=== PATIENT | female | born 1990 | race Caucasian/White ===

== ENCOUNTER 2018-10-31 18:39 | Emergency (ER) | payer OTHER ==
[~2018-10-31] VITALS: Ht 172.7 cm; Wt 101.2 kg
--- NOTE | 2018-10-31 18:46 | ED.ADGEN ---
Past History Past Medical History: Anxiety, Asthma, Depression, STD, UTI, Other Past Surgical History: Other Smoking: Less than 1pk/day Alcohol Use: Heavy Drug Use: None Adult General Chief Complaint Chief Complaint ".. I ve been having contractions all day.... so I figured ... I would get checked out.. I ve had bleeding for two months... now.... I about 30 weeks.. My OB is in [place], [place].. that where I plan on having the baby ... they say I am high risk .. they see me almost every week to 2 weeks..... this will be my second .... HPI HPI Patient is a 28 year old female who presents with above hx and complaints abdomen cramping. Patient has had persistent intermittent vaginal bleeding described as spotting for 2 months.. This will be patient's second . Patient has history of previous STDs of Chlamydia x2 and Trichomonas x2. Has had approximately 50 sex partners in her lifetime. Patient does smoke tobacco and marijuana. Patient is seeing a specialist at [place] for her high risk . However patient plans on delivering at [place], [place]. No history of trauma. Pt. has no history immunosuppression. No history of recent travel. No history of specific ill contacts. Last ultra sound indicated a intrauterine . . No obvious abnormalities Review of Systems Review of Systems Constitutional: Denies fever or chills [] Eyes: Denies change in visual acuity, redness, or eye pain [] HENT: Denies nasal congestion or sore throat [] Respiratory: Denies cough or shortness of breath [] Cardiovascular: No additional information not addressed in HPI [] GI: Crampy abdominal pain, nausea,. Denies vomiting, bloody stools or diarrhea [ ] : Denies dysuria or hematuria []history of vaginal spotting. Musculoskeletal: Denies back pain or joint pain [] Integument: Denies rash or skin lesions [] Neurologic: Denies headache, focal weakness or sensory changes [] Endocrine: Denies polyuria or polydipsia [] All other systems were reviewed and found to be within normal limits, except as documented in this note. Family History Family History Noncontributory Current Medications Current Medications Current Medications Medications (Trade) Dose Ordered Sig/Cristal Start Time Stop Time Status Last Admin Dose Admin Famotidine (Pepcid Vial) 20 mg 1X ONCE 10/31/18 19:30 10/31/18 19:38 DC 10/31/18 19:58 20 MG Lactated Ringer's 1,000 ml @ 1,000 mls/hr Q1H 10/31/18 19:26 10/31/18 20:25 DC 10/31/18 20:32 1,000 MLS/HR Magnesium Sulfate 50 ml @ 25 mls/hr 1X ONCE 10/31/18 19:30 10/31/18 21:29 DC 10/31/18 19:58 25 MLS/HR Ondansetron HCl (Zofran) 4 mg 1X ONCE 10/31/18 19:30 10/31/18 19:38 DC 10/31/18 19:58 4 MG Allergies Allergies Allergies Coded Allergies Type Severity Reaction Last Updated Verified codeine Allergy 09/26/13 Yes Physical Exam Physical Exam Constitutional: no acute distress, non-toxic appearance. [] HENT: Normocephalic, atraumatic, bilateral external ears normal, oropharynx moist, no oral exudates, nose normal. [] Eyes: PERRLA, EOMI, conjunctiva normal, no discharge. [] Neck: Normal range of motion, no tenderness, supple, no stridor. [] Cardiovascular:Heart rate regular rhythm, no murmur [] Lungs & Thorax: Bilateral breath sounds equal with few scattered wheezes on auscultation [] Abdomen: Bowel sounds normal, soft, no tenderness, no masses, no pulsatile masses. Obvious , head appears to be cephalic. No contractions noted during my exam. heart rate appears to be between 1:30 to 140. Vaginal exam no active bleeding. Os is closed. Some mild right adnexal tenderness. Skin: Warm, dry, no erythema, no rash. [] Back: No tenderness, no CVA tenderness. [] Extremities: No tenderness, no cyanosis, no clubbing, ROM intact, trace ankle edema. [] Neurologic: Alert and oriented X 3, normal motor function, normal sensory function, no focal deficits noted. DTRs +2 at patella Psychologic: Affect anxious, judgement normal, mood normal. [] Current Patient Data Vital Signs Vital Signs Date Time Temp Pulse Resp B/P (MAP) Pulse Ox O2 Delivery O2 Flow Rate FiO2 10/31/18 22:10 87 18 128/64 (85) 98 Room Air 10/31/18 18:48 98.3 Lab Results Laboratory Tests Test 10/31/18 18:48 10/31/18 19:29 White Blood Count 11.8 x10^3/uL (4.0-11.0) H Red Blood Count 4.17 x10^6/uL (3.50-5.40) Hemoglobin 11.5 g/dL (12.0-15.5) L Hematocrit 35.3 % (36.0-47.0) L Mean Corpuscular Volume 85 fL (79-100) Mean Corpuscular Hemoglobin 28 pg (25-35) Mean Corpuscular Hemoglobin Concent 33 g/dL (31-37) Red Cell Distribution Width 13.6 % (11.5-14.5) Platelet Count 255 x10^3/uL (140-400) Neutrophils (%) (Auto) 75 % (31-73) H Lymphocytes (%) (Auto) 17 % (24-48) L Monocytes (%) (Auto) 7 % (0-9) Eosinophils (%) (Auto) 1 % (0-3) Basophils (%) (Auto) 0 % (0-3) Neutrophils # (Auto) 8.9 x10^3uL (1.8-7.7) H Lymphocytes # (Auto) 2.0 x10^3/uL (1.0-4.8) Monocytes # (Auto) 0.8 x10^3/uL (0.0-1.1) Eosinophils # (Auto) 0.1 x10^3/uL (0.0-0.7) Basophils # (Auto) 0.0 x10^3/uL (0.0-0.2) Urine Collection Type Unknown Urine Color Yellow Urine Clarity Clear Urine pH 7.0 Urine Specific Cohagen 1.025 Urine Protein Neg (NEG-TRACE) Urine Glucose (UA) Neg mg/dL (NEG) Urine Ketones (Stick) Neg mg/dL (NEG) Urine Blood Neg (NEG) Urine Nitrite Neg (NEG) Urine Bilirubin Neg (NEG) Urine Urobilinogen Dipstick 0.2 mg/dL (0.2 mg/dL) Urine Leukocyte Esterase Neg (NEG) Urine RBC 0 /HPF (0-2) Urine WBC 1-4 /HPF (0-4) Urine Squamous Epithelial Cells Occ /LPF Urine Bacteria Few /HPF (0-FEW) Urine Mucus Mod /LPF Maternal Serum HCG Beta Subunit 37713 mIU/mL (0-6) H Sodium Level 139 mmol/L (136-145) Potassium Level 4.2 mmol/L (3.5-5.1) Chloride Level 105 mmol/L (98-107) Carbon Dioxide Level 23 mmol/L (21-32) Anion Gap 11 (6-14) Blood Urea Nitrogen 10 mg/dL (7-20) Creatinine 0.6 mg/dL (0.6-1.0) Estimated GFR (Cockcroft-Gault) 120.8 Glucose Level 94 mg/dL (70-99) Calcium Level 9.3 mg/dL (8.5-10.1) Magnesium Level 1.7 mg/dL (1.8-2.4) L Total Bilirubin 0.2 mg/dL (0.2-1.0) Direct Bilirubin 0.1 mg/dL (0.0-0.2) Aspartate Amino Transferase (AST) 17 U/L (15-37) Alanine Aminotransferase (ALT) 14 U/L (14-59) Alkaline Phosphatase 102 U/L (46-116) Creatine Kinase 32 U/L (26-192) Troponin I Quantitative < 0.017 ng/mL (0-0.055) Total Protein 7.0 g/dL (6.4-8.2) Albumin 2.8 g/dL (3.4-5.0) L Lipase 146 U/L (73-393) Urine Opiates Screen Neg (NEG) Urine Methadone Screen Neg (NEG) Urine Barbiturates Neg (NEG) Urine Phencyclidine Screen Neg (NEG) Urine Amphetamine/Methamphetamine Neg (NEG) Urine Benzodiazepines Screen Neg (NEG) Urine Cocaine Screen Neg (NEG) Urine Cannabinoids Screen Pos (NEG) Urine Ethyl Alcohol Neg (NEG) Prothrombin Time 9.3 SEC (9.4-11.4) L Prothrombin Time INR 0.9 (0.9-1.1) PTT 22 SEC (23-33) L EKG EKG [] Radiology/Procedures Radiology/Procedures Ultrasound shows intrauterine . MS heart rate 127. Estimated 31 weeks 0 days. No acute abnormalities. See formal report when available[] Course & Med Decision Making Course & Med Decision Making Pertinent Labs and Imaging studies reviewed. (See chart for details) Patient to push fluids. Patient avoid tobacco or warm. Her any illicit drug. Patient to keep follow-up with her primary care/OB. Patient continue vitamins. Must follow-up cultures taken here. May have only Tylenol for discomfort. [] Final Impression Final Impression 1. Threaten Miscarry[] 2. Intrauterine estimated to be 31 weeks no days 3. History of marijuana and tobacco use 4. Blood type A+ 5. Mild leukocytosis of 11.8 and mild dilutional anemia 11.5 6. Hypo-magnesium 1.7 7. Beta hCG is 66, 103 8. Estimated due date is 01/02/19 [employer] Disclaimer Ik[employer]edia Disclaimer This electronic medical record was generated, in whole or in part, using a voice recognition dictation system. Discharge Summary Visit Information Final Diagnosis Problems Medical Problems: (1) Threatened Status: Acute Brief Hospital Course Allergies Allergies Coded Allergies Type Severity Reaction Last Updated Verified codeine Allergy 09/26/13 Yes Vital Signs Vital Signs Date Time Temp Pulse Resp B/P (MAP) Pulse Ox O2 Delivery O2 Flow Rate FiO2 10/31/18 22:10 87 18 128/64 (85) 98 Room Air 10/31/18 18:48 98.3 Lab Results Laboratory Tests Test 10/31/18 18:48 10/31/18 19:29 White Blood Count 11.8 x10^3/uL (4.0-11.0) Red Blood Count 4.17 x10^6/uL (3.50-5.40) Hemoglobin 11.5 g/dL (12.0-15.5) Hematocrit 35.3 % (36.0-47.0) Mean Corpuscular Volume 85 fL (79-100) Mean Corpuscular Hemoglobin 28 pg (25-35) Mean Corpuscular Hemoglobin Concent 33 g/dL (31-37) Red Cell Distribution Width 13.6 % (11.5-14.5) Platelet Count 255 x10^3/uL (140-400) Neutrophils (%) (Auto) 75 % (31-73) Lymphocytes (%) (Auto) 17 % (24-48) Monocytes (%) (Auto) 7 % (0-9) Eosinophils (%) (Auto) 1 % (0-3) Basophils (%) (Auto) 0 % (0-3) Neutrophils # (Auto) 8.9 x10^3uL (1.8-7.7) Lymphocytes # (Auto) 2.0 x10^3/uL (1.0-4.8) Monocytes # (Auto) 0.8 x10^3/uL (0.0-1.1) Eosinophils # (Auto) 0.1 x10^3/uL (0.0-0.7) Basophils # (Auto) 0.0 x10^3/uL (0.0-0.2) Urine Collection Type Unknown Urine Color Yellow Urine Clarity Clear Urine pH 7.0 Urine Specific Cohagen 1.025 Urine Protein Neg (NEG-TRACE) Urine Glucose (UA) Neg mg/dL (NEG) Urine Ketones (Stick) Neg mg/dL (NEG) Urine Blood Neg (NEG) Urine Nitrite Neg (NEG) Urine Bilirubin Neg (NEG) Urine Urobilinogen Dipstick 0.2 mg/dL (0.2 mg/dL) Urine Leukocyte Esterase Neg (NEG) Urine RBC 0 /HPF (0-2) Urine WBC 1-4 /HPF (0-4) Urine Squamous Epithelial Cells Occ /LPF Urine Bacteria Few /HPF (0-FEW) Urine Mucus Mod /LPF Maternal Serum HCG Beta Subunit 24772 mIU/mL (0-6) Sodium Level 139 mmol/L (136-145) Potassium Level 4.2 mmol/L (3.5-5.1) Chloride Level 105 mmol/L (98-107) Carbon Dioxide Level 23 mmol/L (21-32) Anion Gap 11 (6-14) Blood Urea Nitrogen 10 mg/dL (7-20) Creatinine 0.6 mg/dL (0.6-1.0) Estimated GFR (Cockcroft-Gault) 120.8 Glucose Level 94 mg/dL (70-99) Calcium Level 9.3 mg/dL (8.5-10.1) Magnesium Level 1.7 mg/dL (1.8-2.4) Total Bilirubin 0.2 mg/dL (0.2-1.0) Direct Bilirubin 0.1 mg/dL (0.0-0.2) Aspartate Amino Transf (AST/SGOT) 17 U/L (15-37) Alanine Aminotransferase (ALT/SGPT) 14 U/L (14-59) Alkaline Phosphatase 102 U/L (46-116) Creatine Kinase 32 U/L (26-192) Troponin I Quantitative < 0.017 ng/mL (0-0.055) Total Protein 7.0 g/dL (6.4-8.2) Albumin 2.8 g/dL (3.4-5.0) Lipase 146 U/L (73-393) Urine Opiates Screen Neg (NEG) Urine Methadone Screen Neg (NEG) Urine Barbiturates Neg (NEG) Urine Phencyclidine Screen Neg (NEG) Urine Amphetamine/Methamphetamine Neg (NEG) Urine Benzodiazepines Screen Neg (NEG) Urine Cocaine Screen Neg (NEG) Urine Cannabinoids Screen Pos (NEG) Urine Ethyl Alcohol Neg (NEG) Prothrombin Time 9.3 SEC (9.4-11.4) Prothromb Time International Ratio 0.9 (0.9-1.1) Activated Partial Thromboplast Time 22 SEC (23-33) Brief Hospital Course Ms. Bonilla is a 28 old female who presented with 31 weeks gravid with complaints of contractions. Discharge Information Condition at Discharge: Improved, Stable Disposition/Orders: D/C to Home Dischare Medications Current Medications Lactated Ringer's 1,000 ml @ 1,000 mls/hr 1X ONCE IV Last administered on at 19:32; Admin Dose 1,000 MLS/HR; Start 10/31/18 at 19:15; Stop 10/31/18 at 20:14; Status DC Lactated Ringer's 1,000 ml @ 1,000 mls/hr Q1H IV Last administered on at 20:32; Admin Dose 1,000 MLS/HR; Start 10/31/18 at 19:26; Stop 10/31/18 at 20:25; Status DC Ondansetron HCl (Zofran) 4 mg 1X ONCE IV Last administered on 10/31/18at 19:58 ; Admin Dose 4 MG; Start 10/31/18 at 19:30; Stop 10/31/18 at 19:38; Status DC Famotidine (Pepcid Vial) 20 mg 1X ONCE IVP Last administered on 10/31/18at 19: 58; Admin Dose 20 MG; Start 10/31/18 at 19:30; Stop 10/31/18 at 19:38; Status DC Magnesium Sulfate 50 ml @ 25 mls/hr 1X ONCE IV Last administered on 10/31/18at 19:58; Admin Dose 25 MLS/HR; Start 10/31/18 at 19:30; Stop 10/31/18 at 21:29; Status DC Active Scripts Active Discharge Summary Visit Information Final Diagnosis Problems Medical Problems: (1) Threatened Status: Acute Brief Hospital Course Allergies Allergies Coded Allergies Type Severity Reaction Last Updated Verified codeine Allergy 09/26/13 Yes Vital Signs Vital Signs Date Time Temp Pulse Resp B/P (MAP) Pulse Ox O2 Delivery O2 Flow Rate FiO2 10/31/18 22:10 87 18 128/64 (85) 98 Room Air 10/31/18 18:48 98.3 Lab Results Laboratory Tests Test 10/31/18 18:48 10/31/18 19:29 White Blood Count 11.8 x10^3/uL (4.0-11.0) Red Blood Count 4.17 x10^6/uL (3.50-5.40) Hemoglobin 11.5 g/dL (12.0-15.5) Hematocrit 35.3 % (36.0-47.0) Mean Corpuscular Volume 85 fL (79-100) Mean Corpuscular Hemoglobin 28 pg (25-35) Mean Corpuscular Hemoglobin Concent 33 g/dL (31-37) Red Cell Distribution Width 13.6 % (11.5-14.5) Platelet Count 255 x10^3/uL (140-400) Neutrophils (%) (Auto) 75 % (31-73) Lymphocytes (%) (Auto) 17 % (24-48) Monocytes (%) (Auto) 7 % (0-9) Eosinophils (%) (Auto) 1 % (0-3) Basophils (%) (Auto) 0 % (0-3) Neutrophils # (Auto) 8.9 x10^3uL (1.8-7.7) Lymphocytes # (Auto) 2.0 x10^3/uL (1.0-4.8) Monocytes # (Auto) 0.8 x10^3/uL (0.0-1.1) Eosinophils # (Auto) 0.1 x10^3/uL (0.0-0.7) Basophils # (Auto) 0.0 x10^3/uL (0.0-0.2) Urine Collection Type Unknown Urine Color Yellow Urine Clarity Clear Urine pH 7.0 Urine Specific Cohagen 1.025 Urine Protein Neg (NEG-TRACE) Urine Glucose (UA) Neg mg/dL (NEG) Urine Ketones (Stick) Neg mg/dL (NEG) Urine Blood Neg (NEG) Urine Nitrite Neg (NEG) Urine Bilirubin Neg (NEG) Urine Urobilinogen Dipstick 0.2 mg/dL (0.2 mg/dL) Urine Leukocyte Esterase Neg (NEG) Urine RBC 0 /HPF (0-2) Urine WBC 1-4 /HPF (0-4) Urine Squamous Epithelial Cells Occ /LPF Urine Bacteria Few /HPF (0-FEW) Urine Mucus Mod /LPF Maternal Serum HCG Beta Subunit 60056 mIU/mL (0-6) Sodium Level 139 mmol/L (136-145) Potassium Level 4.2 mmol/L (3.5-5.1) Chloride Level 105 mmol/L (98-107) Carbon Dioxide Level 23 mmol/L (21-32) Anion Gap 11 (6-14) Blood Urea Nitrogen 10 mg/dL (7-20) Creatinine 0.6 mg/dL (0.6-1.0) Estimated GFR (Cockcroft-Gault) 120.8 Glucose Level 94 mg/dL (70-99) Calcium Level 9.3 mg/dL (8.5-10.1) Magnesium Level 1.7 mg/dL (1.8-2.4) Total Bilirubin 0.2 mg/dL (0.2-1.0) Direct Bilirubin 0.1 mg/dL (0.0-0.2) Aspartate Amino Transf (AST/SGOT) 17 U/L (15-37) Alanine Aminotransferase (ALT/SGPT) 14 U/L (14-59) Alkaline Phosphatase 102 U/L (46-116) Creatine Kinase 32 U/L (26-192) Troponin I Quantitative < 0.017 ng/mL (0-0.055) Total Protein 7.0 g/dL (6.4-8.2) Albumin 2.8 g/dL (3.4-5.0) Lipase 146 U/L (73-393) Urine Opiates Screen Neg (NEG) Urine Methadone Screen Neg (NEG) Urine Barbiturates Neg (NEG) Urine Phencyclidine Screen Neg (NEG) Urine Amphetamine/Methamphetamine Neg (NEG) Urine Benzodiazepines Screen Neg (NEG) Urine Cocaine Screen Neg (NEG) Urine Cannabinoids Screen Pos (NEG) Urine Ethyl Alcohol Neg (NEG) Prothrombin Time 9.3 SEC (9.4-11.4) Prothromb Time International Ratio 0.9 (0.9-1.1) Activated Partial Thromboplast Time 22 SEC (23-33) Brief Hospital Course Ms. Bonilla is a 28 old female who presented with 31 week reported high risk for threaten miscarry. Pt. not in active labor. Pt. to call her OB in am and follow up pending labs and cultures. Discharge Information Condition at Discharge: Improved, Stable Disposition/Orders: D/C to Home Dischare Medications Current Medications Lactated Ringer's 1,000 ml @ 1,000 mls/hr 1X ONCE IV Last administered on at 19:32; Admin Dose 1,000 MLS/HR; Start 10/31/18 at 19:15; Stop 10/31/18 at 20:14; Status DC Lactated Ringer's 1,000 ml @ 1,000 mls/hr Q1H IV Last administered on at 20:32; Admin Dose 1,000 MLS/HR; Start 10/31/18 at 19:26; Stop 10/31/18 at 20:25; Status DC Ondansetron HCl (Zofran) 4 mg 1X ONCE IV Last administered on 10/31/18at 19:58 ; Admin Dose 4 MG; Start 10/31/18 at 19:30; Stop 10/31/18 at 19:38; Status DC Famotidine (Pepcid Vial) 20 mg 1X ONCE IVP Last administered on 10/31/18at 19: 58; Admin Dose 20 MG; Start 10/31/18 at 19:30; Stop 10/31/18 at 19:38; Status DC Magnesium Sulfate 50 ml @ 25 mls/hr 1X ONCE IV Last administered on 10/31/18at 19:58; Admin Dose 25 MLS/HR; Start 10/31/18 at 19:30; Stop 10/31/18 at 21:29; Status DC Active Scripts Active Dragon Disclaimer This chart was dictated in whole or in part using Voice Recognition software in a busy, high-work load, and often noisy Emergency Department environment. It may contain unintended and wholly unrecognized errors or omissions. Dragon Disclaimer This chart was dictated in whole or in part using Voice Recognition software in a busy, high-work load, and often noisy Emergency Department environment. It may contain unintended and wholly unrecognized errors or omissions. MALLY STEPHENSON MD Oct 31, 2018 18:46
[2018-10-31] MEDS ORDERED: IV RINGERS SOLUTION,LACTATED 1,000 ML IV ONE (19:15)
[2018-10-31] MEDS ORDERED: IV RINGERS SOLUTION,LACTATED 1,000 ML IV SCH (19:26)
[2018-10-31] MEDS ORDERED: FAMOTIDINE 20 MG/2 ML VIAL IVP ONE (19:30)
[2018-10-31] MEDS ORDERED: MAGNESIUM SULFATE 2GM 50 ML IV ONE (19:30)
[2018-10-31] MEDS ORDERED: ONDANSETRON PF 4 MG/2 ML VIAL. IV ONE (19:30)
[2018-10-31 19:44] LABS: BASO % 0 % (0-3); EOS # 0.1 x10^3/uL (0.0-0.7); EOS % 1 % (0-3); HEMATOCRIT 35.3 % (36.0-47.0); HEMOGLOBIN 11.5 g/dL (12.0-15.5); LYMPH % 17 % (24-48); MEAN CORPUSCULAR HEMOGLOBIN 28 pg (25-35); MEAN CORPUSCULAR HGB CONC 33 g/dL (31-37); MEAN CORPUSCULAR VOLUME 85 fL (79-100); MONO # 0.8 x10^3/uL (0.0-1.1); MONO % 7 % (0-9); NEUT # 8.9 x10^3uL (1.8-7.7); NEUT % 75 % (31-73); PLATELET COUNT 255 x10^3/uL (140-400); RED BLOOD COUNT 4.17 x10^6/uL (3.50-5.40); RED CELL DISTRIBUTION WIDTH 13.6 % (11.5-14.5); WHITE BLOOD COUNT 11.8 x10^3/uL (4.0-11.0)
[2018-10-31 19:51] LABS: BACTERIA,URINE FEW /HPF (0-FEW); BILIRUBIN,URINE NEG (NEG); CLARITY,URINE CLEAR; COLOR,URINE YELLOW; GLUCOSE,URINE NEG (NEG); NITRITE,URINE NEG (NEG); RBC,URINE 0 /HPF (0-2); SQUAMOUS EPITHELIAL CELL,UR OCC /LPF; UROBILINOGEN,URINE 0.2 mg/dL (0.2 mg/dL)
[2018-10-31 19:52] LABS: BARBITURATES NEG (NEG); BENZODIAZEPINES NEG (NEG); COCAINE NEG (NEG); METHADONE NEG (NEG); OPIATES NEG (NEG); PHENCYCLIDINE NEG (NEG)
[2018-10-31 19:53] LABS: AMPHETAMINE/METHAMPHETAMINE NEG (NEG)
[2018-10-31 20:27] LABS: ALBUMIN 2.8 g/dL (3.4-5.0); CALCIUM 9.3 mg/dL (8.5-10.1); CREATININE 0.6 mg/dL (0.6-1.0); DIRECT BILIRUBIN 0.1 mg/dL (0.0-0.2); GFR 120.8; MAGNESIUM 1.7 mg/dL (1.8-2.4); POTASSIUM 4.2 mmol/L (3.5-5.1); TOTAL BILIRUBIN 0.2 mg/dL (0.2-1.0)
--- NOTE | 2018-10-31 21:23 | RAD ---
OB ultrasound dated 10/31/2018: No comparison available. Clinical Indication: Bleeding and contractions.. Findings: There is a single intrauterine gestation in cephalic presentation. The placenta is anterior in location without evidence of placental previa. The amount of amniotic fluid appears appropriate. ALEJANDRO equals 13.3 cm. Cervix is not well visualized. Biometrical data is as follows: BPD = 7.8 cm for 31 weeks 1 days. HC = 28.3 cm for 31 weeks 0 days. AC = 26.4 cmfor 30 weeks 3 days. FL = 6.0 cm for 31 weeks 2 days. Overall, the estimated sonographic gestational age is 31 weeks 0 days for an estimated date of delivery of 01/02/2019. Estimated weight is 1651 g. Complete survey was not performed. heart rate estimated 127 bpm. Positive movement. Impression: Single viable intrauterine gestation with estimated sonographic gestational age of 31 weeks 0 days. No acute findings. Electronically signed by: Keaton Collazo MD (10/31/2018 9:20 PM) [facility]
[2018-10-31 21:28] LABS: CANNABINOIDS POS (NEG)
[2018-10-31 22:10] VITALS: BP 128/64
== END 2018-10-31 22:10 | disposition home or self-care (01) ==
LOC: ER 18:39
DX: O20.0 Threatened abortion (principal); O99.113 Other diseases of the blood and blood-forming organs and certain disorders involving the immune mechanism complicating pregnancy, third trimester; D72.829 Elevated white blood cell count, unspecified; E83.42 Hypomagnesemia; D64.9 Anemia, unspecified; O99.513 Diseases of the respiratory system complicating pregnancy, third trimester; O99.343 Other mental disorders complicating pregnancy, third trimester; O23.43 Unspecified infection of urinary tract in pregnancy, third trimester; F41.9 Anxiety disorder, unspecified; J45.909 Unspecified asthma, uncomplicated; F32.9 Major depressive disorder, single episode, unspecified; O99.333 Smoking (tobacco) complicating pregnancy, third trimester; O99.323 Drug use complicating pregnancy, third trimester; F12.90 Cannabis use, unspecified, uncomplicated; O99.313 Alcohol use complicating pregnancy, third trimester; F10.20 Alcohol dependence, uncomplicated; Z3A.28 28 weeks gestation of pregnancy; Z88.5 Allergy status to narcotic agent; Y90.0 Blood alcohol level of less than 20 mg/100 ml
CPT/HCPCS: 36415; 76815; 80048; 80076; 80307; 81001; 82550; 83690; 83735; 84443; 84484; 84702; 85025; 85610; 85730; 86592; 86703; 86705; 86709; 86803; 86900; 86901; 87340; 87491; 87591; 96365; 96366; 96375; 99284; J2405; J3475; J3490; J7120

== ENCOUNTER 2021-07-18 10:37 | Emergency (ER) | payer MEDICAID, OTHER ==
[~2021-07-18] VITALS: Ht 170.2 cm; Wt 102.7 kg
[2021-07-18 10:55] VITALS: BP 136/93
--- NOTE | 2021-07-18 11:03 | PHYS DOC ---
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 Patient states she had a hysterectomy done on July 03, 2021. She states yesterday she developed an itch on the left bacon, she states the area was also painful. She states after touching the area she noted it had swollen up. She states she developed left hip pain worse on external rotation of the left hip. She states she called her LIVEST[employer] AUCTIONEER who requested her to come to the ED and get a Doppler to rule out DVT to the left lower extremity. Patient denies any chest pain, shortness of breath, personal family history of DVTs. (VIANEY CAMPOS APRN) Review of Systems Review of Systems Constitutional: Denies fever or chills [] Musculoskeletal: Reports left lower extremity pain, denies any back pain Integument: Denies rash or skin lesions [] Neurologic: Denies headache, focal weakness or sensory changes [] All other systems were reviewed and found to be within normal limits, except as documented in this note. (VIANEY CAMPOS APRN) Allergies Allergies Allergies Coded Allergies Type Severity Reaction Last Updated Verified codeine Allergy Unknown 07/18/21 Yes (VIANEY CAMPOS APRN) Physical Exam Physical Exam Constitutional: Well developed, well nourished, no acute distress, non-toxic appearance. [] Abdomen: Bowel sounds normal, soft, no tenderness, no masses, no pulsatile masses. [] Skin: Warm, dry, no erythema, no rash. [] Back: No tenderness, no CVA tenderness. [] Extremities:Slight tenderness on palpation of the left bacon mid bacon with a small bruise on the area, negative Homans' sign to the left lower extremity, full passive range of motion to the left lower extremity, limited external rotation of the left hip due to pain. +2 left pedal pulse. Cap refill less than 2 seconds to left lower extremity. Sensation intact to the left lower extremity. Neurologic: Alert and oriented X 3, normal motor function, normal sensory function, no focal deficits noted. [] Psychologic: Affect normal, judgement normal, mood normal. [] (VIANEY CAMPOS APRN) EKG EKG [] (VIANEY CAMPOS APRN) Radiology/Procedures Radiology/Procedures []PROCEDURE: VENOUS LOWER EXTREMITY LEFT Exam Date: 07/18/2021 11:03 AM US DPLX VENOUS EXTREMITY LOWER LT Indication: Reason: pain / Spl. Instructions: / History: . INDICATION: Lower extremity pain/swelling TECHNIQUE: Grayscale sonogram, color Doppler, and spectral Doppler waveform analysis of the lower extremity venous system was performed on the left. FINDINGS: The left common femoral, superficial femoral, central greater saphenous, popliteal, posterior tibial and peroneal veins are compressible and demonstrate normal color Doppler flow and normal spontaneous phasic waveforms or normal response to augmentation. IMPRESSION: No evidence of deep venous thrombosis in the left lower extremity. Electronically signed by: Boby Ferris MD (07/18/2021 11:38 AM) [facility] DICTATED AND SIGNED BY: BOBY FERRIS MD DATE: 07/18/21 1138 CC: EMERGENCY,DEPARTMENT; VIANEY CAMPOS APRN; AMARI TORRES ~MTH0 0 (VIANEY CAMPOS APRN) Heart Score C/O Chest Pain: N/A Risk Factors: Risk Factors: DM, Current or recent (<one month) smoker, HTN, HLP, family history of CAD, obesity. Risk Scores: Risk Factors: DM, Current or recent (<one month) smoker, HTN, HLP, family history of CAD, obesity. (VIANEY CAMPOS APRN) Course & Med Decision Making Course & Med Decision Making Pertinent Labs and Imaging studies reviewed. (See chart for details) This is a 31-year-old female patient presented to the ED today concerned she could have a DVT to the left lower extremity. She had a hysterectomy done on July 03, 2021 and yesterday had an itchy swollen area on the left bacon. Venous doppler is negative. D/c to home. F/u with PCP/OBGYN next week (VIANEY CAMPOS APRN) Dragon Disclaimer Dragon Disclaimer This electronic medical record was generated, in whole or in part, using a voice recognition dictation system. (VIANEY CAMPOS APRN) Departure Departure: Impression: Primary Impression: Left leg pain Disposition: HOME / SELF CARE / HOMELESS Condition: STABLE Referrals: AMARI TORRES (PCP) follow up next week Patient Instructions: Musculoskeletal Pain Additional Instructions: You were evaluated in the emergency room for left lower extremity pain, you left lower extremity ultrasound is negative for DVT/blood clot. Follow-up with your doctor in 1 week. Attending Signature Attending Signature I have reviewed the PA/RESTAURANT CASHIER's note and plan of care. I was available for consultation as needed during the patient's visit in the emergency department. I agree with the clinical impression, plan, and disposition. (CAMERON BOND DO) VIANEY CAMPOS APRN Jul 18, 2021 11:03 CAMERON BOND DO Jul 18, 2021 19:20
--- NOTE | 2021-07-18 11:40 | RAD ---
Exam Date: 07/18/2021 11:03 AM US DPLX VENOUS EXTREMITY LOWER LT Indication: Reason: pain / Spl. Instructions: / History: . INDICATION: Lower extremity pain/swelling TECHNIQUE: Grayscale sonogram, color Doppler, and spectral Doppler waveform analysis of the lower ex tremity venous system was performed on the left. FINDINGS: The left common femoral, superficial femoral, central greater saphenous, popliteal, posterior tibial and peroneal veins are compressible and demonstrate normal color Doppler flow and normal spontaneous phasic waveforms or normal response to augmentation. IMPRESSION: No evidence of deep venous thrombosis in the left lower extremity. Electronically signed by: Meir Ferris MD (07/18/2021 11:38 AM) [facility]
== END 2021-07-18 11:46 | disposition home or self-care (01) ==
LOC: ER 10:37
DX: I82.402 Acute embolism and thrombosis of unspecified deep veins of left lower extremity (principal); M79.662 Pain in left lower leg; J45.909 Unspecified asthma, uncomplicated; F17.200 Nicotine dependence, unspecified, uncomplicated; Z88.5 Allergy status to narcotic agent
CPT/HCPCS: 93971; 99284-25